=== PATIENT | female | born 2000 | race Caucasian/White ===

== ENCOUNTER 2024-05-13 19:04 | Emergency (ER) | payer BC ==
[~2024-05-13] VITALS: Ht 172.7 cm; Wt 75.0 kg
[~2024-05-13 19:04] MED LIST: BENADRYL E2.5 MG/1 M PO; NO HOME MEDICATIONS; PRELONE15 MG/5 ML PO
[2024-05-13] MEDS ORDERED: diphenhydrAMINE 25 MG CAP PO ONE (20:30)
[2024-05-13] MEDS ORDERED: ZOFRAN ODT4 MG PO (21:23)
[2024-05-13] MEDS ORDERED: Home Ondansetron ODT 4 MG #2 ODT/PACK PO ONE (21:30)
[2024-05-13 21:33] VITALS: BP 131/75; PULSE 73; TEMP 98
== END 2024-05-13 21:35 | disposition home or self-care (01) ==
LOC: COL.ER 19:04
DX: S60.562A Insect bite (nonvenomous) of left hand, initial encounter (principal); R11.2 Nausea with vomiting, unspecified; W57.XXXA Bitten or stung by nonvenomous insect and other nonvenomous arthropods, initial encounter